=== PATIENT | male | born 1980 | race Caucasian/White ===

== ENCOUNTER 2025-03-28 18:58 | Emergency (ER) | payer BC, SELFPAY ==
[2025-03-28 19:07] VITALS: BP 129/102
[2025-03-28 19:54] VITALS: BMI 37.9
[2025-03-28 20:13] VITALS: BP 125/85
[2025-03-28 20:32] LABS: Hematocrit 40.1 % (39.0-52.0); Hemoglobin 13.8 g/dL (13.0-18.0); Mean Corp Hgb Conc. 34.4 g/dL (33.0-37.0); Mean Corpuscular Volume 89.7 fL (80.0-94.0); Nucleated Red Blood Cells % 0 % (-); Platelet Count 256 10^3/uL (130-400); Red Cell Dist. Width 12.8 % (11.5-14.5); Urine Character Clear (Clear)
[2025-03-28 20:39] LABS: Urine Squamous Cell 0-2 /LPF (Few)
[2025-03-28 20:40] LABS: Urine White Cell 0-2 /HPF (0-5)
[2025-03-28 20:42] LABS: ALT (SGPT) 55 U/L (0-50); AST (SGOT) 36 U/L (17-59); Albumin 4.3 g/dl (3.5-5.0); Alkaline Phosphatase 94 U/L (38-126); Blood Urea Nitrogen 20 mg/dl (9-20); Calcium 9.5 mg/dl (8.4-10.2); Carbon Dioxide 23 mmol/L (22-30); Chloride 105 mmol/L (98-107); Estimated Creatinine Clearance 101 ml/min; Glucose 102 mg/dl (70-99); Potassium 4.4 mmol/L (3.5-5.1); Sodium 132 mmol/L (135-145); Total Protein 7.2 g/dl (6.3-8.2); eGFR > 60.00
--- NOTE | 2025-03-28 20:47 | ED.GENMED ---
History of Present Illness
General
Chief Complaint: Post Operative Problem(s)
Source: patient and family
Exam Limitations: none
Time Seen by Provider: 03/28/25 20:29
Nursing documentation reviewed up to this point in time: agreed with
History of Present Illness
History of Present Illness:
44-year-old male 10 days status post parathyroid removal [facility] same day surgery by ENT went home the same day no catheter, had decreased swelling of his neck over the next day or so was feeling well the past 2 days or so he said
increased swelling of his neck at the surgical site some difficulty urinating and crampiness in his left mid abdomen
No fever or chills, social drinker social smoker high blood pressure
Past History
Past History
ED Past Medical History: HTN and Other (Hyperparathyroid hypertension)
ED Past Surgical History: Other (Parathyroid removal 10 days ago)
Social History
Alcohol: Occasional
Drug: None
Personal:
Living: with family
Employment: Employed
Review of Systems
Review of Systems
All Other Systems: Not applicable
Constitutional: Denies fever or fatigue
EENT: Reports sore throat and other (Swelling surgical site)
Respiratory: Reports no symptoms
Cardiac: Reports no symptoms
ABD/GI: Reports abdominal pain
: Reports difficulty voiding and urgency
Musculoskeletal: Reports no symptoms
Skin: Reports no symptoms
Neurological: Reports no symptoms
Phy Exam
Physical Exam
Physical Exam:
Physical Exam
General: no apparent distress, not acutely ill
Neck: Swelling is anterior neck surgical site nontender approxi-1 x 3 cm, normal voice does not appear hoarse no stridor no trismus
Heart: Regular
Lungs: no acute respiratory distress. clear bilaterally
Abdomen: Soft nontender
Neuro: alert and oriented. no focal neurological deficits
Skin: no rash
Psychiatric: well kept. interactive and cooperative
Extremities: no edema. no calf tenderness.
Course
Orders/Labs/Results
Orders:
Orders
03/28/25 20:07
Cardiac Monitoring- Treatment ONCE
IV Insert/Care/Rem.- Treatment PRN
Pulse Ox/cont/shift [RESP] Urgent
Quantity: 1
Special Instructions: CONTINUOUS
03/28/25 20:21
Complete Blood Count/With Diff Urgent
Comprehensive Metabolic Panel Urgent
Lactic Acid Q4H
Comment: ON ICE, CANCEL 2ND ORDER IF FIRST LACTIC ACID LEVEL <2
Magnesium Urgent
Comment: ADD ON
Phosphorus Urgent
Comment: ADD ON
Urinalysis Reflex To Culture Urgent
Date Specimen was Collected: 03/28/25
Time Specimen was Collected: 20:07
Urine Microscopic Reflex Cult Urgent
03/28/25 20:36
CT Neck With Iv Contrast Urgent
Comment:
Reason For Exam: swelling p neck surgery
Bladder Scan- Treatment ONCE
03/28/25 20:37
Add On- LAB Urgent
Tests Added?: magnesium, calcium
03/28/25 20:45
Add On- LAB Urgent
Tests Added?: phosphorus
03/28/25 20:52
CT Chest PE Study Urgent
Comment:
Reason For Exam: Postop pain tachycardia
03/28/25 21:56
0.9% Sodium Chloride 500 ml [Nss] 500 ml IV BOLUS
Phenazopyridine HCl [Pyridium] 200 mg PO NOW STA
Abnormal Lab Results
03/28/25
20:21
RBC 4.47 L 10^6/uL
(4.70-6.10)
Abs Immat Gran (auto) 0.1 H 10^3/uL
(0-0.05)
Absolute Lymphs (auto) 3.5 H 10^3/uL
(1.2-3.4)
Absolute Monos (auto) 0.7 H 10^3/uL
(0.1-0.6)
Immature Gran % 0.6 H %
(0-0.5)
Sodium 132 L mmol/L
(135-145)
Glucose 102 H mg/dl
(70-99)
ALT 55 H U/L
(0-50)
Ur Occult Blood Reflex 3+ A
(Negative)
Urine RBC 3-6 A /HPF
(0-2)
Urine Bacteria (Reflex) Few A
(Negative)
Urine Albumin (Reflex) 1+ A
(Neg - Trace)
03/28/25 20:21
03/28/25 20:21
Vital Signs
Initial and Last Documented VS:
Initial Vital Signs
Temp Pulse Resp BP Pulse Ox
99.1 F 120 20 129/102 98
03/28/25 19:07 03/28/25 19:07 03/28/25 19:07 03/28/25 19:07 03/28/25 19:07
Last Documented Vital Signs
Temp Pulse Resp BP Pulse Ox
99.1 F 76 24 116/83 99
03/28/25 19:07 03/28/25 22:15 03/28/25 22:15 03/28/25 22:00 03/28/25 22:15
*Pulse Oximetry
SaO2: 98
Oxygen Mode of Delivery: Room air
Patient hypoxic: no
*Critical Care Note
Total Time (30-74mins, 75-104mins- exclusive of procedures): Not Applicable
Update Note
Update Note:
10 PM update labs noted urine noted bladder scan noted CTs noted
Patient appears comfortable, no stridor no trismus call placed to his referring physician HOWARD Rosen
Patient appears well I do not see any occasion for urgent transfer will follow-up with the treating physicians
ED Attending Note
-
Portions of this chart may have been created with voice recognition software.� Occasional wrong word or��sound alike� substitutions may have occurred due to the inherent limitations of voice recognition software.
Discharge Plan
Departure
Patient Disposition: Home (Routine Discharge)
Date of Disposition: 03/28/25
Time of Disposition: 23:09
Patient with high blood pressure during this ER visit?: No
Condition: Good
Discharge Problem:
Postoperative swelling
Instructions: Seroma
Prescriptions:
New
phenazopyridine [Pyridium] 200 mg tablet
200 mg PO PC PRN (Reason: Pain) Qty: 5 0RF
Referrals:
Benson Evans DO [Family Provider, Family Practice]
Leah Vaughn MD [Non-Admitting Privileges, Surgical] - Next open appointment
Activity Restrictions/Additional Instructions:
Call your surgeon in the morning to discuss your symptoms
drink plenty of fluids, Tylenol as needed for pain
Pyridium up to 3 times a day for urinary burning
Return to the ER if worsening symptoms or any other concerns
Interventions
Interventions:
*Risk Screen - Suicide Last Done: 03/28/25 19:08
*General Assessment Last Done: 03/28/25 19:54
*Neglect/Abuse Screening Last Done: 03/28/25 19:08
*ED- Fall Risk Assessment Last Done: 03/28/25 19:54
*ED COVID-19 Vaccine History Last Done: 03/28/25 19:54
*ED Influenza Vaccine History Last Done: 03/28/25 19:54
ED-Skin Assessment Last Done: 03/28/25 19:54
Discharge Date and Time
Print Language: MONTENEGRIN
[2025-03-28 20:54] LABS: Magnesium 1.9 mg/dl (1.6-2.3)
[2025-03-28 21:00] VITALS: BP 112/77
[2025-03-28 22:00] VITALS: BP 116/83
[2025-03-28] MEDS: NSS 500 IV (22:03)
== END 2025-03-28 23:50 | disposition home or self-care (01) ==
LOC: EMR 18:58
PROVIDERS: EMERGENCY PHYSICIAN Emergency Medicine; FAMILY PHYSICIAN Family Medicine
DX: R22.1 Localized swelling, mass and lump, neck (principal); T88.8XXA Other specified complications of surgical and medical care, not elsewhere classified, initial encounter; R00.0 Tachycardia, unspecified; I10 Essential (primary) hypertension
CPT/HCPCS: 99284; 96360; 70491; 71275; 80053; 81003; 81015; 83605; 83735; 84100; 85025; 87086; Q9967